=== PATIENT | female | born 1975 | race Caucasian/White ===

== ENCOUNTER 2016-12-03 11:46 | Emergency (ER) | payer OTHER ==
[2016-12-03 12:08] VITALS: BP 135/73
--- NOTE | 2016-12-03 13:24 | PROVIDER DOCUMENTATION ---
HPI-Musculoskeletal Pain/Inj - GENERAL Chief Complaint: Extremity Injury Stated Complaint: RT FOOT INJURY Time Seen by Provider: 12/03/16 11:50 Source: patient, family - HX OF PRESENT ILLNESS-MUSKULOSKELTAL Quality of Pain: reports: aching Severity in ED: moderate Onset/Duration: last night Timing: still present Modifying Factors: improves with: nothing Any recent injury?: Yes ("I TRIPPED ON A TOY LAST NIGHT." ) Locality of Occurance: Home Similar Symptoms Previously?: No Recently seen or treated by another doctor?: No - FALL INJURY Location of Pain/Injury: reports: other (RIGHT ANKLE AND FOOT) Pain Radiation: reports: no radiation - LOWER EXTREMITY PAIN/INJURY Lower Extremities Pain: ankle: right (LATERAL PAIN AND SWELLING) Context / Method of Injury: reports: other (TWISTED IT ON A TOY) Review of Systems - Adult - REVIEW OF SYSTEMS - ADULT Constitutional: reports: no symptoms reported Eyes: reports: no symptoms reported Ears, Nose, Mouth & Throat: reports: no symptoms reported Cardiovascular: reports: no symptoms reported Respiratory: reports: no symptoms reported Gastrointestinal: reports: no symptoms reported Genitourinary: reports: no symptoms reported Musculoskeletal: reports: joint pain, joint swelling Integumentary: reports: no symptoms reported Neurological: reports: no symptoms reported Psychiatric: reports: no symptoms reported Endocrine: reports: no symptoms reported Hematologic/Lymphatic: reports: no symptoms reported Allergic/Immunologic: reports: no symptoms reported All Other Systems: Reviewed and Negative Past History - Adult - PAST MEDICAL HISTORY-ADULT Review of Records: reports: Old Records Reviewed, Nursing Assessment Review Major Childhood Illnesses: reports: denies history Cardiovascular: reports: denies history Respiratory: reports: denies history Gastrointestinal: reports: denies history Obstetrical/Gynecological: reports: denies history Genitourinary: reports: denies history Musculoskeletal: reports: denies history Neurological: reports: denies history Psychiatric: reports: anxiety, depression, psychiatric problems, other (ADHD) Endocrine/Immune: reports: denies history Other Conditions: reports: denies history - PRIOR SURGERIES/PROCEDURES Surgical/Procedure History: reports: reviewed, not pertinent - PRIOR HOSPITALIZATIONS Prior Hospitalizations: reports: none - IMMUNIZATION STATUS Childhood Immunizations: See Nurse Assessment Flu Vaccine: See Nurse Assessment - FAMILY HISTORY Family History: reviewed, not pertinent Physical Exam-Injury Related - Physical Exam-Injury Related Initial Vital Signs Reviewed: Yes General Appearance: appears well, alert Eyes: PERRL/EOMI Head, Ears, Nose, Mouth & Throat: normocephalic/atraumatic Neck: non-tender Respiratory: chest non-tender Cardiovascular: normal peripheral pulses, regular rate, rhythm Peripheral Pulses: dorsalis-pedis (R): 3+, dorsalis-pedis (L): 3+ Male Genitalia: herpes-like lesion Lymphatic: no adenopathy Back Exam: normal inspection Extremity: swelling, tenderness, other (RIGHT LATERAL FOOT) Integumentary: swelling Neurologic: grossly normal Psych/Mental Status: normal mood/affect - Glascow Coma Score Best Eye Response ([place]): (4) open spontaneously Best Verbal Response ([place]): (5) oriented Best Motor Response ([place]): (6) obeys commands Progress - PLAN OF CARE/RESULTS Progress/Plan/Lab Results: TAKE PREDNISONE WITH FOOD. DO NOT WORK, DRIVE OR DRINK ALCOHOL AND TAKE MUSCLE RELAXER, USE ICE ELEVATE AND CRUTCHES NEEDED. FOLLOW UP WITH YOUR PCP FOR ORTHOPEDIST. Vital Signs Temp Pulse Resp BP Pulse Ox 12/03/16 12:06 97.7 F 115 H 18 135/73 98 NSAIDS (Non-Steroidal Anti-Inflamma Adverse Reaction (Verified 12/03/16 12:31) Unknown Aripiprazole [Abilify] 7.5 mg PO DAILY 07/11/16 Clonazepam [Klonopin] 1 mg PO TID 12/03/16 Orders Category Date Time Status ANKLE COMPLETE RIGHT [RAD] Routine Exams 12/03/16 Taken FOOT COMPLETE RIGHT [RAD] Stat Exams 12/03/16 12:37 Draft RIGHT FOOT AND ANKLE XRAYS--NO FRACTURES NOTED. - XRAY 1 XRAY: Right (NO FRACTURE NOTED) XRAY Study: Ankle, Foot Departure - Departure Time of Disposition Order: 14:15 DIAGNOSIS: Right ankle sprain Qualifiers: Encounter type: initial encounter Involved ligament of ankle: unspecified ligament Qualified Code(s): S93.401A - Sprain of unspecified ligament of right ankle, initial encounter Disposition: HOME 01 Certified Medical Emergency: Emergent Condition: Stable Additional Instructions: USE ICE, ELEVATE, USE WALKING BOOT. TAKE PREDNISONE WITH FOOD. FOLLOW UP WITH YOUR PCP OR ORTHOPEDIST FOR FURTHER EVALUATION AND MANAGEMENT. ED Follow Up Instructions: You have been treated by a care provider in the Emergency Department. These instructions are being provided to you so you can have an understanding of how to care for yourself upon discharge. Upon discharge from the Emergency Department, you are responsible for making arrangements for follow-up care by a physician of your choice. Take all prescribed medications as directed. Return to the Emergency Department immediately for any new or worsening symptoms. You may call the Physician Referral phone number at [phone] to obtain a list of Physicians who are taking new patients. Prescriptions: Cyclobenzaprine [Flexeril] 10 mg PO TID #20 tablet Methylprednisolone [Medrol Dosepak] 4 mg PO DIRECTED #1 package Referrals: Noah Miranda [Primary Care Provider] - Patrice Swain MD [STAFF PHYSICIAN] -
--- NOTE | 2016-12-03 14:07 | Diag Imaging Result Document ---
PROCEDURE NAME: FOOT COMPLETE RIGHT - 12/03/2016 PLAIN RADIOGRAPH OF THE RIGHT FOOT, 3 VIEWS: COMPARISON: None available. FINDINGS: There are small bone spurs involving the calcaneus at the undersurface and the Achilles insertion. There is no discrete fracture, dislocation, or intrinsic osseous lesion identified. There is soft tissue edema at the anterior aspect of the ankle. IMPRESSION: No evidence of acute osseous abnormality.
--- NOTE | 2016-12-03 14:19 | Diag Imaging Result Document ---
PROCEDURE NAME: ANKLE COMPLETE RIGHT - 12/03/2016 PLAIN RADIOGRAPH OF THE RIGHT ANKLE, 3 VIEWS: COMPARISON: None available. FINDINGS: There is no discrete fracture, dislocation, or intrinsic osseous lesion identified. The joint spaces appear to be preserved. There is mild soft tissue edema about the ankle. IMPRESSION: No definite acute osseous abnormality by plain radiograph.
== END 2016-12-03 14:48 | disposition home or self-care (01) ==
LOC: ED 11:46
DX: S93.401A Sprain of unspecified ligament of right ankle, initial encounter (principal); S99.911A Unspecified injury of right ankle, initial encounter; M25.571 Pain in right ankle and joints of right foot; M25.471 Effusion, right ankle; F41.9 Anxiety disorder, unspecified; F32.9 Major depressive disorder, single episode, unspecified; F90.9 Attention-deficit hyperactivity disorder, unspecified type; X58.XXXA Exposure to other specified factors, initial encounter; Z79.899 Other long term (current) drug therapy